=== PATIENT | male | born 1975 | race Caucasian/White ===

== ENCOUNTER 2020-05-21 18:13 | Emergency (ER) | payer OTHER ==
[~2020-05-21] VITALS: Ht 200.7 cm; Wt 137.0 kg
[~2020-05-21 18:13] MED LIST: AFRIN15 ML NS; ALBUTEROL INHAL17 GM IH; BISOPROLOL FUMAR5 MG PO; CELEXA10 MG PO; COZAAR 50 MG TA50 M2 PO; DELTASONE20 MG PO; FLEXERIL PO; FLONASE 0.05%50 MCG NASAL; NORCO 5-325 TA1 EACH PO; PREDNISONE50 MG PO; PRILOSEC 20 MG20 MG PO; PRILOSEC40 MG PO; PRINIVIL20 MG PO; ZPAK PO
[2020-05-21 18:58] LABS: URINE BILIRUBIN NEGATIVE (Negative); URINE BLOOD NEGATIVE (Negative); URINE CLARITY CLEAR; URINE COLOR YELLOW; URINE GLUCOSE-RANDOM* NEGATIVE (Negative); URINE KETONES NEGATIVE (Negative); URINE LEUKOCYTES-REFLEX NEGATIVE (Negative); URINE NITRITE-REFLEX NEGATIVE (Negative); URINE PROTEIN (DIPSTICK) NEGATIVE (Negative); URINE SPECIFIC GRAVITY >= 1.030 (1.005-1.035)
[2020-05-21] MEDS ORDERED: MOBIC7.5 MG PO (19:03)
[2020-05-21] MEDS ORDERED: PREDNISONE 20 M20 MG PO (19:03)
[2020-05-21] MEDS ORDERED: TIZANIDINE4 MG/1 TA1 PO (19:03)
[2020-05-21 20:00] VITALS: BP 150/72
== END 2020-05-21 20:11 | disposition home or self-care (01) ==
LOC: ER 18:13
PROVIDERS: Nurse Practitioner
DX: S39.012A Strain of muscle, fascia and tendon of lower back, initial encounter (principal); I10 Essential (primary) hypertension; K21.9 Gastro-esophageal reflux disease without esophagitis; F84.0 Autistic disorder; Z88.6 Allergy status to analgesic agent; Z79.899 Other long term (current) drug therapy; Z87.891 Personal history of nicotine dependence; X58.XXXA Exposure to other specified factors, initial encounter; Y93.89 Activity, other specified; Y92.89 Other specified places as the place of occurrence of the external cause; Y99.8 Other external cause status

== ENCOUNTER 2020-06-04 22:19 | Emergency (ER) | payer OTHER ==
[~2020-06-04] VITALS: Ht 200.7 cm; Wt 131.5 kg
[~2020-06-04 22:19] MED LIST changes: +MOBIC7.5 MG PO; +PREDNISONE 20 M20 MG PO; +TIZANIDINE4 MG/1 TA1 PO
[2020-06-04] MEDS ORDERED: FLEXERIL PO (23:36)
[2020-06-04] MEDS ORDERED: HYDROCODON-ACE1 EAC7 PO (23:36)
[2020-06-04] MEDS ORDERED: MEDROLDOSEPACK PO (23:36)
[2020-06-05 00:02] VITALS: BP 153/96
== END 2020-06-05 00:03 | disposition home or self-care (01) ==
LOC: ER 22:19
DX: S39.012A Strain of muscle, fascia and tendon of lower back, initial encounter (principal); F15.90 Other stimulant use, unspecified, uncomplicated; I10 Essential (primary) hypertension; K21.9 Gastro-esophageal reflux disease without esophagitis; G89.29 Other chronic pain; F84.0 Autistic disorder; Z87.891 Personal history of nicotine dependence; Z88.5 Allergy status to narcotic agent; Z79.899 Other long term (current) drug therapy; X50.1XXA Overexertion from prolonged static or awkward postures, initial encounter; Y93.89 Activity, other specified; Y92.89 Other specified places as the place of occurrence of the external cause; Y99.9 Unspecified external cause status

== ENCOUNTER 2020-07-02 18:25 | Emergency (ER) | payer OTHER ==
[~2020-07-02 18:25] MED LIST changes: +HYDROCODON-ACE1 EAC7 PO; +MEDROLDOSEPACK PO
[2020-07-02 18:27] VITALS: BP 97/65
--- NOTE | 2020-07-05 07:37 | EKG ---
[address] [address] [facility] [place] [address] ELECTROCARDIOGRAM REPORT Name: PRESTONKEIRA [id number] Admission: 07/02/20 Attend Phys: Discharge: 07/02/20 Date of : 77 Report #: [id number] [facility] ED Test Date: 2020-07-02 Test Time: 18:38:30 Pat Name: KEIRA PRESTON Department: Room: Gender: Assembly Line Worker: : 1975 Requested By: Tyler Shell Order Number: [id number] MD: Paco Rhodes Measurements Intervals [place] Rate: 77 P: -5 WI: 126 QRS: 63 QRSD: 104 T: -6 QT: 350 QTc: 397 Interpretive Statements Sinus rhythm Borderline T abnormalities, inferior leads Poor R wave progression Compared to ECG 11/16/2015 14:06:27 T-wave abnormality now present Electronically Signed On 07-05-2020 7:37:04 [employer] by Paco Rhodes [email or web address] <ELECTRONICALLY SIGNED> By: Paco Rhodes MD, [facility] 07/05/20 0737 1838 183 Paco Rhodes MD, FACC /EPI
== END 2020-07-02 20:20 | disposition home or self-care (01) ==
LOC: ER 18:25
DX: R07.9 Chest pain, unspecified (principal); I10 Essential (primary) hypertension; K21.9 Gastro-esophageal reflux disease without esophagitis; G89.29 Other chronic pain; M54.5 Low back pain; Z79.899 Other long term (current) drug therapy; Z87.891 Personal history of nicotine dependence; Z88.5 Allergy status to narcotic agent

== ENCOUNTER 2021-01-28 11:47 | Emergency (ER) | payer OTHER ==
[~2021-01-28] VITALS: Ht 200.7 cm; Wt 138.8 kg
[2021-01-28 12:31] LABS: ABSOLUTE NEUTROPHILS 8.7 thou/uL (1.4-8.2); BASOPHILS 0.8 % (0.0-2.0); HEMATOCRIT 46.7 % (42.0-52.0); HEMOGLOBIN 16.2 gm/dL (14.0-18.0); LYMPHOCYTES 15.3 % (24.0-44.0); MCH 30.7 pg (26.0-34.0); MCHC 34.7 g/dL (28.0-37.0); MCV 88.6 fL (80.0-100.0); MONOCYTES 9.7 % (1.0-8.0); PLATELET COUNT 246 thou/uL (150-400); POLYS 73.2 % (36.0-66.0); RBC 5.27 mil/uL (4.50-6.00); RDW 13.6 % (10.5-14.5); WBC 11.9 thou/uL (4.0-11.0)
[2021-01-28 12:46] LABS: CALCIUM 9.3 mg/dL (8.5-10.1); CREATININE 1.5 mg/dL (0.7-1.3); POTASSIUM 4.2 mmol/L (3.5-5.1)
[2021-01-28 12:53] LABS: ALBUMIN 3.8 g/dL (3.4-5.0); TOTAL BILIRUBIN 0.6 mg/dL (0.2-1.0); TOTAL PROTEIN 8.3 g/dL (6.4-8.2)
[2021-01-28 14:52] LABS: URINE BILIRUBIN NEGATIVE (Negative); URINE BLOOD TRACE (Negative); URINE CLARITY CLEAR; URINE COLOR YELLOW; URINE GLUCOSE-RANDOM* NEGATIVE (Negative); URINE KETONES TRACE (Negative); URINE LEUKOCYTES-REFLEX NEGATIVE (Negative); URINE NITRITE-REFLEX NEGATIVE (Negative); URINE PROTEIN (DIPSTICK) NEGATIVE (Negative)
[2021-01-28 14:55] LABS: AMP/METHAMP Negative (Negative); BARBITURATES Negative (Negative); BENZODIAZEPINES Negative (Negative); COCAINE Negative (Negative); METHADONE Negative (Negative); OPIATES Negative (Negative); PCP Negative (Negative)
--- NOTE | 2021-01-28 16:12 | EKG ---
[address] [address] [facility] [place] [address] ELECTROCARDIOGRAM REPORT Name: KEIRA PRESTON Room #: [facility]#: [id number] Admission: 01/28/21 Attend Phys: Discharge: Date of : [birth year] Report #: [id number] [facility] ED Test Date: 2021-01-28 Test Time: 12:21:30 Pat Name: KEIRA PRESTON Department: Room: Gender: M Pest Control Worker: : 1975 Requested By: Elvia Comer Order Number: [id number] MD: Hiram Gonzáles Measurements Intervals [place] Rate: 95 P: -17 [place]: 127 QRS: 13 QRSD: 104 T: 15 QT: 338 QTc: 425 Interpretive Statements Sinus rhythm ST elev, probable normal early repol pattern Compared to ECG 07/02/2020 18:38:30 ST (T wave) deviation now present T-wave abnormality no longer present Poor R-wave progression no longer present Electronically Signed On 01-28-2021 16:11:59 CDT by Hiram Gonzáles [email or web address] <ELECTRONICALLY SIGNED> By: Hiram Gonzáles MD, [facility] 01/28/21 1611 1221 122 Hiram Gonzáles MD, [facility] /EPI
[2021-01-28 16:36] VITALS: BP 155/95
== END 2021-01-28 16:36 | disposition home or self-care (01) ==
LOC: ER 11:47
PROVIDERS: Nurse Practitioner Family
DX: R51.9 Headache, unspecified (principal); Z20.822 Contact with and (suspected) exposure to COVID-19; I10 Essential (primary) hypertension; K21.9 Gastro-esophageal reflux disease without esophagitis; Z79.899 Other long term (current) drug therapy; Z87.891 Personal history of nicotine dependence; Z88.5 Allergy status to narcotic agent